=== PATIENT | male | born 2000 | race Caucasian/White ===

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

== ENCOUNTER 2024-06-22 10:23 | Emergency (ER) | payer SELFPAY ==
[~2024-06-22] VITALS: Ht 175.3 cm; Wt 136.0 kg
[~2024-06-22 10:23] MED LIST changes: +METOPROL TAR25 M1 PO
[2024-06-22 11:06] VITALS: BP 149/108
[2024-06-22 11:08] VITALS: BP 151/104
[2024-06-22 11:15] VITALS: BP 147/95
[2024-06-22 11:30] VITALS: BP 138/96
[2024-06-22 11:45] VITALS: BP 152/107
[2024-06-22 11:45] LABS: URINE BILIRUBIN - DIPSTICK Negative (NEGATIVE); URINE BLOOD DIPSTICK Large (NEGATIVE); URINE GLUCOSE - DIPSTICK Negative (NEGATIVE); URINE KETONE Negative (NEGATIVE); URINE LEUK ESTERASE Negative (NEGATIVE); URINE NITRITE - DIPSTICK Negative (Negative); URINE PH 6.5 (4.5-8.0); URINE PROTEIN - DIPSTICK Trace mg/dL (NEG-TRACE); URINE SPECIFIC GRAVITY 1.025; URINE UROBILINOGEN - DIPSTICK 0.2 E.U./dL (0.2)
[2024-06-22 11:52] LABS: URINE COLOR Yellow
[2024-06-22 11:53] LABS: URINE RBC 25-50 RBC/hpf (0-5)
[2024-06-22] MEDS ORDERED: KETOROLAC TROMETHAMINE 30 MG/ML SDV IM ONE (12:45)
[2024-06-22] MEDS ORDERED: TORADOL PO (12:54)
[2024-06-22] MEDS ORDERED: TAMSULOSIN0.4 MG PO (12:54)
[2024-06-22 13:01] VITALS: BP 152/107
== END 2024-06-22 13:09 | disposition home or self-care (01) | DRG 694 ==
LOC: ED 10:23
PROVIDERS: Family Medicine
DX: N20.0 Calculus of kidney (principal); I10 Essential (primary) hypertension; F17.290 Nicotine dependence, other tobacco product, uncomplicated; Z87.442 Personal history of urinary calculi